=== PATIENT | male | born 1990 | race Hispanic/Latino ===

== ENCOUNTER 2025-01-02 15:09 | Emergency (ER) | payer SELFPAY ==
[2025-01-02] MEDS ORDERED: Lidocaine 1% (PF) 30 ML VIAL ONE (15:45)
[2025-01-02] MEDS ORDERED: Boostrix 0.5 ML (Tdap) VIAL (>/=7 yrs of age) ONE (15:45)
[2025-01-02] MEDS ORDERED: Bacitracin 1 PK ONE (15:45)
== END 2025-01-02 17:21 | disposition home or self-care (01) ==
LOC: NAV ERS 15:09
DX: S67.193A Crushing injury of left middle finger, initial encounter (principal); R03.0 Elevated blood-pressure reading, without diagnosis of hypertension; Z23 Encounter for immunization; W23.0XXA Caught, crushed, jammed, or pinched between moving objects, initial encounter; Y99.0 Civilian activity done for income or pay
CPT/HCPCS: 12001; 90471; 90715; J2003